=== PATIENT | female | born 1980 | race Caucasian/White ===

== ENCOUNTER 2024-04-24 09:23 | Emergency (ER) | payer BC, SELFPAY ==
[2024-04-24 09:25] VITALS: BP 120/81; PULSE 89; RESP 18; TEMP 36.4; O2SAT 100; BMI 25.7
--- NOTE | 2024-04-24 09:36 | ED.GENADULT ---
HPI - General Adult General Chief complaint: Flank Pain Stated complaint: Abdominal/back pain Time Seen by Provider: 04/24/24 09:36 History of Present Illness HPI narrative: Patient presents to the emergency department complaining of left abdominal/ flank pain. Patient states this started about an hour ago and is very intense. Pain has gotten so bad she became nauseous. No blood in the urine noted by patient. Patient denies fever at home. 44-year-old woman presenting to the emergency department concern of left flank area pain. Started about an hour prior to presentation. She thought maybe she does need to have a bowel movement or passed some gas. Notes underlying history of celiac disease but this is much different than usual. Hard to pinpoint exactly where the pain is coming from. 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 the try to palpate some location to pain but it seems fairly diffuse up and down the left side of the abdomen. Urinated unremarkably earlier this morning but this was prior to pain. She has vomited a couple of times. Relatively abrupt onset of pain. No difficulty breathing. Nausea she thinks is related to the pain. Related Data Home Medications ?Medication ?Instructions ?Recorded ?Confirmed levothyroxine 112 mcg tablet 112 mcg PO DAILY 04/24/24 04/28/24 oxycodone-acetaminophen 5 mg-325 1 tab PO Q4-6H PRN 04/28/24 04/28/24 mg tablet Previous Rx's ?Medication ?Instructions ?Recorded tamsulosin 0.4 mg capsule (Flomax) 0.4 mg PO DAILY #14 caps 04/24/24 oxycodone 5 mg tablet 5 - 10 mg (1 - 2 x 5 mg) PO Q4H 04/28/24 PRN pain #14 tabs Allergies Allergy/AdvReac Type Severity Reaction Status Date / Time No Known Drug Allergies Allergy Verified 04/28/24 02:02 Review of Systems Status of ROS: Reports: 6 or more systems reviewed and unremarkable except as noted in History and below [facility] Medical History Kidney stone ?N20.0 - Calculus of kidney (ICD-10) Social History Smoking Status: Never smoker Second hand tobacco smoke exposure: No How often do you have a drink containing alcohol: never How often do you have six or more drinks on one occasion: Never AUDIT-C Alcohol total score: 0 Non-prescribed substance use: denies use service: No Exam Narrative: Exam Narrative: Quietly clearly uncomfortable. Skin is warm and dry. Well-perfused peripherally. Heart in regular rate and rhythm. Abdomen is soft and maybe little uncomfortable to palpation generally in the left side but not with significantly reproducible pain or to palpation in the flank. Extremities without edema. Const: Vital Signs, click to edit/add: Vital Signs - 24 hr 04/24/24 09:25 Temperature 97.6 F Pulse Rate [Right Pulse Oximeter] 89 Respiratory Rate 18 Blood Pressure [Ri ght Upper Arm] 120/81 Pulse Oximetry 100 Oxygen Delivery Me thod Room Air Documenting provider has reviewed patient's vital signs: yes Course Vital Signs Vital signs: Initial Vital Signs Temperature 97.6 F 04/24/24 09:25 Temperature Source Temporal Artery Scan 04/24/24 09:25 Pulse Rate 89 04/24/24 09:25 Pulse Rhythm Regular 04/24/24 09:25 Pulse Strength 3+ Normal 04/24/24 09:25 Respiratory Rate 18 04/24/24 09:25 Blood Pressure 120/81 04/24/24 09:25 Blood Pressure Mean 94 04/24/24 09:25 Blood Pressure Position Sitting 04/24/24 09:25 Pulse Oximetry 100 04/24/24 09:25 Oxygen Delivery Method Room Air 04/24/24 09:25 Vital Signs Temperature 97.6 F 04/24/24 09:25 Pulse Rate 89 04/24/24 09:25 Respiratory Rate 18 04/24/24 09:25 Blood Pressure 120/81 04/24/24 09:25 Pulse Oximetry 100 04/24/24 09:25 Oxygen Delivery Method Room Air 04/24/24 09:25 Temperature 97.6 F 04/24/24 09:25 Pulse Rate 89 04/24/24 09:25 Respiratory Rate 18 04/24/24 09:25 Blood Pressure 120/81 04/24/24 09:25 Pulse Oximetry 100 04/24/24 09:25 Oxygen Delivery Method Room Air 04/24/24 09:25 Medications Administered Medications: Discontinued Medications Generic Name Dose Route Start Last Admin Trade Name Freq PRN Reason Stop Dose Admin Sodium Chloride 1,000 mls @ 1,000 mls/hr 04/24/24 09:41 04/24/24 09:40 0.9 % Sodium Chloride 1000 Ml IV 04/24/24 10:40 1,000 mls/hr .Q1H ONE Administration Ketorolac Tromethamine 30 mg 04/24/24 09:41 04/24/24 10:02 Ketorolac 30 Mg/Ml Inj IVP 04/24/24 09:42 30 mg ONCE ONE Administration Morphine Sulfate 4 mg 04/24/24 09:41 04/24/24 10:02 Morphine 4 Mg/Ml Inj IVP 04/24/24 09:42 4 mg ONCE ONE Administration Ondansetron HCl 4 mg 04/24/24 09:41 04/24/24 10:02 Ondansetron 2 Mg/Ml Inj IVP 04/24/24 09:42 4 mg ONCE ONE Administration Tamsulosin HCl 0.4 mg 04/24/24 10:02 04/24/24 11:16 Tamsulosin Hcl 0.4 Mg Capsule PO 04/24/24 10:03 0.4 mg ONCE ONE Administration Medical Decision Making MDM Narrative Medical decision making narrative: I would suspect ureteral stone and colic. Does not have a personal history of this. Unclear whether not her dad may have had kidney stones before. Would check for urinary tract infection of course as well but this seems to be atypical course. Could be vascular disruption I suppose. Does not appear to be radiating from the back/discogenic disease. No pain in adnexal area and out ovarian origin. IV normal saline and given ketorolac, morphine for more immediate effect, Zofran. Labs are reassuring. Normal creatinine. Improved with treatments as above. CT scan was requested without contrast has I strongly suspect ureteral stone. By my independent review I do see a moderately large left ureteral calculus looks to be between 4 and 5 mm at the proximal ureter looks to be at about the level of the psoas. There is some mild left hydronephrosis. Flomax yet ordered. Radiology over-read below INDICATION: Left-sided abdominal and back pain TECHNIQUE: Axial images were obtained from the diaphragm to the pubic symphysis. Reformats were obtained in the coronal and sagittal plane. IV Contrast: None Oral Contrast: None COMPARISON: None. FINDINGS: Lower chest: Unremarkable. Liver: Normal in contour with 11 millimeter cyst within the left lobe of the liver. Gallbladder and bile ducts: Unremarkable. No stones or inflammation. No biliary dilatation. Spleen: Unremarkable. Normal in size without mass. Pancreas: Unremarkable. No mass or inflammation. Adrenal glands: Unremarkable. No nodules. Kidneys: Nephrolithiasis with mild left hydronephrosis. Obstructing proximal left ureteral stone measuring 4 x 4 millimeters. Vasculature: Unremarkable. GI tract: The stomach is unremarkable. No dilated loops of large or small intestine. Unremarkable appendix. Pelvis: Unremarkable. Bones: Unremarkable for age. IMPRESSION: Nephrolithiasis with mild left hydronephrosis and obstructing proximal left ureteral stone measuring 4 x 4 millimeters. Discuss these findings with Vannessa. Unfortunately this stone has a little ways to travel yet. Still rather high Urinalysis was not obtained prior to departure. See patient discharge plan for further discussion Generally stay well hydrated with water. Consider straining your urine over this next week. Take Flomax until appears stone has passed. Follow-up in 5 days if stone likely still present/still having pain. Be seen sooner for uncontrolled pain, intractable vomiting, fever. Since you do not take ibuprofen, only prescribing Percocet from [facility] along with Zofran for nausea. Otherwise Flomax sent to your pharmacy. Lab Data Lab results reviewed: Yes I reviewed the patient's lab results Labs: Lab Results 04/24/24 Range/Units 10:07 WBC 7.59 (4.50-11.00) K/uL RBC 4.44 (4.00-5.20) m/uL Hgb 12.5 (12.0-16.0) gm/dL Hct 38.6 (33.0-51.0) % MCV 87 (80-100) fL MCH 28 (26-34) pg MCHC 32 (32-36) gm/dL RDW Coeff of Gayathri 13.6 (11.5-15.5) % Plt Count 260 (140-440) K/uL Neut % (Auto) 77.1 H (42.0-72.0) % Lymph % (Auto) 17.7 L (20-44) % [place] % (Auto) 4.1 (0.0-11.0) % Eos % (Auto) 0.5 (0.0-7.0) % Baso % (Auto) 0.5 (0.0-3.0) % Neut # (Auto) 5.90 (1.7-7.0) K/uL Lymph # (Auto) 1.30 (0.90-2.90) K/uL Renville # (Auto) 0.30 (0.00-0.90) K/UL Eos # (Auto) 0.04 (0.00-0.50) K/uL Baso # (Auto) 0.04 (0.00-0.30) K/uL Abs Immat Gran (auto) 0.01 (0.00-0.30) K/uL Imm/Tot Granulo (auto) 0.1 % Sodium 135 (135-149) mmol/L Potassium 3.7 (3.6-5.1) mmol/L Chloride 103 (96-114) mmol/L Carbon Dioxide 22 (20-32) mmol/L Anion Gap 10 (7-15) mEq/L BUN 16 (5-24) mg/dL Creatinine 0.7 (0.5-1.5) mg/dL Estimated Creat Clear 89.48 Estimated GFR 110 ml/min Glucose 109 (60-115) mg/dL Calcium 8.8 (8.4-10.6) mg/dL Discharge Plan Discharge Clinical Impression: Left ureteral calculus, Ureteral colic Patient Disposition: Home w/ Parent or Adult Condition: Improved Additional Instructions: Generally stay well hydrated with water. Consider straining your urine over this next week. Take Flomax until appears stone has passed. Follow-up in 5 days if stone likely still present/still having pain. Be seen sooner for uncontrolled pain, intractable vomiting, fever. Since you do not take ibuprofen, only prescribing Percocet from [facility] along with Zofran for nausea. Otherwise Flomax sent to your pharmacy. Prescriptions: New tamsulosin [Flomax] 0.4 mg capsule 0.4 mg PO DAILY Qty: 14 0RF No Action levothyroxine 112 mcg tablet 112 mcg PO DAILY oxycodone-acetaminophen 5-325 mg tablet 1 tab PO Q4-6H PRN oxycodone 5 mg tablet 5 - 10 mg PO Q4H PRN (Reason: pain) Qty: 14 0RF Follow Up/Referrals: Florencia Ibrahim DO [Primary Care Provider] - Stand Alone Forms: [employer] Info Instructions
[2024-04-24] MEDS: 0.9 % SODIUM CHLORIDE 1000 ml 1,000 ML IV (09:40)
--- NOTE | 2024-04-24 09:41 | CRLHL7_ITS ---
For Patients: As a result of the Century Cures Act, medical imaging exams and procedure reports are released immediately into your electronic medical record. You may view this report before your referring provider. If you have questions, please contact your health care provider. INDICATION: Left-sided abdominal and back pain TECHNIQUE: Axial images were obtained from the diaphragm to the pubic symphysis. Reformats were obtained in the coronal and sagittal plane. IV Contrast: None Oral Contrast: None COMPARISON: None. FINDINGS: Lower chest: Unremarkable. Liver: Normal in contour with 11 millimeter cyst within the left lobe of the liver. Gallbladder and bile ducts: Unremarkable. No stones or inflammation. No biliary dilatation. Spleen: Unremarkable. Normal in size without mass. Pancreas: Unremarkable. No mass or inflammation. Adrenal glands: Unremarkable. No nodules. Kidneys: Nephrolithiasis with mild left hydronephrosis. Obstructing proximal left ureteral stone measuring 4 x 4 millimeters. Vasculature: Unremarkable. GI tract: The stomach is unremarkable. No dilated loops of large or small intestine. Unremarkable appendix. Pelvis: Unremarkable. Bones: Unremarkable for age. IMPRESSION: Nephrolithiasis with mild left hydronephrosis and obstructing proximal left ureteral stone measuring 4 x 4 millimeters. Please note that all CT scans at this facility use dose modulation, iterative reconstruction, and/or weight-based dosing when appropriate to reduce radiation dose to as low as reasonably achievable. Dictated by Shaq Lee MD @ 04/24/2024 9:58:11 AM (Electronically Signed)
[2024-04-24] MEDS: MORPHINE 4 MG/ML INJ IVP (10:02)
[2024-04-24] MEDS: ONDANSETRON 2 MG/ML inj 4 MG IVP (10:02)
[2024-04-24] MEDS: KETOROLAC 30 MG/ML inj IVP (10:02)
[2024-04-24 10:22] LABS: Basophils Absolute Auto 0.04 K/uL (0.00-0.30); Basophils Percent Auto 0.5 % (0.0-3.0); Eosinophils Absolute Auto 0.04 K/uL (0.00-0.50); Eosinophils Percent Auto 0.5 % (0.0-7.0); Hematocrit 38.6 % (33.0-51.0); Hemoglobin* 12.5 gm/dL (12.0-16.0); Immature Granulocytes Abs Auto 0.01 K/uL (0.00-0.30); Immature Granulocytes Pct Auto 0.1 %; Lymphocytes Percent Auto 17.7 % (20-44); Mean Corpuscular HGB Conc 32 gm/dL (32-36); Mean Corpuscular Hemoglobin 28 pg (26-34); Mean Corpuscular Volume 87 fL (80-100); Monocytes Percent Auto 4.1 % (0.0-11.0); Neutrophils Percent Auto 77.1 % (42.0-72.0); Platelet Count* 260 K/uL (140-440); RDW Coefficient of Variation % 13.6 % (11.5-15.5); Red Blood Count 4.44 m/uL (4.00-5.20); White Blood Count* 7.59 K/uL (4.50-11.00)
[2024-04-24 10:29] LABS: Slide Review Reflex No
[2024-04-24 10:34] LABS: Chloride* 103 mmol/L (96-114); Potassium* 3.7 mmol/L (3.6-5.1); Sodium* 135 mmol/L (135-149)
[2024-04-24 10:37] LABS: Blood Urea Nitrogen* 16 mg/dL (5-24); Creatinine* 0.7 mg/dL (0.5-1.5); Est. Creatinine Clearance* 89.48; Estimated Glomerular Filt Rate 110 ml/min
[2024-04-24 10:38] LABS: Anion Gap 10 mEq/L (7-15); Calcium* 8.8 mg/dL (8.4-10.6); Carbon Dioxide* 22 mmol/L (20-32); Glucose* 109 mg/dL (60-115)
[2024-04-24] MEDS: TAMSULOSIN HCL 0.4 MG CAPSULE PO (11:16)
== END 2024-04-24 11:22 | disposition home or self-care (01) ==
PROVIDERS: Emergency Provider Family Medicine; PCP Family Medicine
DX: N20.1 Calculus of ureter (principal)
CPT/HCPCS: 36415; 74176; 80048; 81001; 85025; 96374; 96375; 99284; A9270; J1885; J2270; J2405; J7030

== ENCOUNTER 2024-04-28 01:54 | Emergency (ER) | payer BC, SELFPAY ==
--- OUTSIDE RECORDS SUMMARY | 2024-04-28 01:56 | XMS_ITS | Continuity of Care Document ---
Author Organization [facility] Address [address] [address] [place] [address] Phone Care Team Providers Care Advertising Sales Manager Name Role Phone Jonas Tirado MD Unavailable [...] by oral route 2 times every week 08118 UNITS - Active Procedures Procedure Date New Level 4 Advance Directives Directive Yes / No Effective Date File Name No Information Encounters Encounter Description Practice Location Reason(s) For Visit Diagnoses Date Provider Providers Copied on Encounter [facility], [address] [address], [place], [place], [id number], [place] tel:[phone] [facility] No Information Abelino Mcdaniel. [address] [facility], [facility] [address], [place], [place], [id number] , [place]. tel:[phone] New Level 4 [facility] [place], [address] [address], [place], [place], [id number], [place] tel:[phone] [facility] GI Symptoms or Concerns (chief complaint) Collagenous colitisCeliac disease Abelino Mcdaniel. [address] [facility], [facility] [address], [place], [place], [address] , [place]. [phone] Referring Provider: Florencia Ibrahim MD, [address] [place] [address], [address]. tel:[phone] [facility], [address] [address], [place], [place], [id number], [place] tel:[phone] [facility] No Information Abelino Mcdaniel. [address] [facility], [facility] [address], [place], [place], [id number] , [place]. [phone] Family History Family Member Type Diagnosis Age [...] Registry Payers Payer name Insurance type Covered democrat ID Authoriza tion(s) No Information Social History Type Description Quantity Date Captured Comments Sex Female Smoking Status No Information Chief Complaint And Reason For Visit No Information Reason For Referral Reason For Referral No Information Plan Of Treatment Date Type Action Status Referral Ordered: Thyroid Jewell Profile Appointment date/timeframe: First Available ordered Referral [...]
--- OUTSIDE RECORDS SUMMARY | 2024-04-28 01:56 | XMS_ITS | Clinical Summary ---
Author Organization [facility] Address [place], [place] [address] Care Team Providers Care [employer] Le[employer] Sales Representative Name Role Phone GurpreetFlorencia mohamud Mary Unavailable Florencia Ibrahim DO Primary Care Provider [phone] Allergies No known active allergies Medications cholecalciferol (Vitamin D-3) 2,000 unit capsule Take 1 Capsule (2,000 units) by mouth once daily. 0 1 Active levothyroxine (SYNTHROID) 112 mcg tabletIndications:O ther specified hypothyroidism Take 1 Tablet (112 mcg) by mouth before breakfast. 90 Tablet 1 03/13/2024 3:20 PM AUTOMATION ANALYST 4 Active Hospital, Clinic, or Other Facility Administered Medication Ordered Dose Route Frequency Start Date End Date Status cyanocobalamin (VITAMIN B12) 1,000 mcg/mL injection 1,000 mcgIndications:Collag enous colitis,Low vitamin B12 level,Fatigue, unspecified type 1000 mcg IM Q 4 WEEKS (28 days) 01/31/2022 Active Active Problems Problem Noted Date Diagnosed Date Pap smear for cervical cancer screening 07/02/19 24 Overview (08/10/2023): 07/2009 ASCUS/HPV+ 08/2009 [place]: Biopsy and ECC Negative 05/2010 NIL 05/2011 NIL 07/2014 NIL/HPV negative 12/2018 NIL/HPV negative 07/2023 NIL/HPV negative. Plan: Pap/HPV due 07/2028. Collagenous colitis 12/08/2020 Overview (12/08/2020): Colonoscopy 12/2020 collagenous colitis, repeat at age 51 Celiac disease 03/22/2020 Overview (03/22/2020): Colonoscopy 03/2020 Hwang 3c, gluten free diet for life Retroverted uterus in second trimester 7 Overview (04/10/2017): It's a Boy!! Estimated Date of Delivery: 05/05/17 Patient's last menstrual period was 07/26/2016 (exact date). Last Tdap- 02/21/2017 Last Flu vaccine- 12/27/2016 No Known Allergies Obstetric History T2 L2 SAB0 TAB0 Ectopic0 Multiple0 Live Births2 # Outcome Date GA Lbr Placido/2nd Weight Sex Delivery Anes PTL Lv 3 Current 2 Term 3.175 kg (7 lb) F Vag MARY 1 Term M Vag MARY Component Latest Ref Rng & Units 10/13/2016 10/13/2016 10/13/2016 12:11 PM 12:11 PM 12:11 PM SODIUM 135 - 145 mmol/L POTASSIUM 3.5 - 5.0 mmol/L CHLORIDE 98 - 110 mmol/L CO2,TOTAL 21 - 31 mmol/L ANION GAP 5 - 18 GLUCOSE 65 - 100 mg/dL CALCIUM 8.5 - 10.5 mg/dL BUN 8 - 25 mg/dL CREATININE 0.57 - 1.11 mg/dL BUN/CREAT RATIO 10 - 20 GFR if >60 ml/min/1.73m2 GFR if not >60 ml/min/1.73m2 ALBUMIN 3.5 - 5.2 g/dL PROTEIN,TOTAL 6.0 - 8.0 g/dL GLOBULIN 2.0 - 3.7 g/dL A/G RATIO 1.0 - 2.0 BILIRUBIN,TOTAL 0.2 - 1.2 mg/dL ALK PHOSPHATASE 50 - 136 IU/L ALT (SGPT) 8 - 45 IU/L AST (SGOT) 2 - 40 IU/L ANTIBODY SCREEN Negative Negative SPECIMEN EXPIRATION DATE/TIME 10/16/16 23:59 HEMOGLOBIN 12.0 - 16.0 g/dL 12.2 MCV 80 - 100 fL 87 RUBELLA IGG ANTIBODY Positive 3.21 CHLAMYDIA PROBE N GONORRHOEAE PROBE HEMOGLOBIN A1C SCREENING <6.4 % 4.8 ABORH A Rh Positive HBSAG Nonreactive Nonreactive HEPATITIS C ANTIBODY Non-Reactive Non-Reactive HIV-1/HIV-2 ANTIBODY Non-Reactive Non-Reactive TREPONEMA PALLIDUM Negative Negative TSH 0.35 - 4.94 uIU/mL 2.29 GENZYME QUAD SCREEN D-DIMER,QUANTITATIVE <0.50 FEU mcg/mL FEU mcg/mL GLUCOSE,GESTATIONAL 65 - 139 mg/dL Component Latest Ref Rng & Units 10/13/2016 11/17/2016 01/08/2017 12:14 PM SODIUM 135 - 145 mmol/L 137 POTASSIUM 3.5 - 5.0 mmol/L 3.8 CHLORIDE 98 - 110 mmol/L 103 CO2,TOTAL 21 - 31 mmol/L 25 ANION GAP 5 - 18 9 GLUCOSE 65 - 100 mg/dL 94 CALCIUM 8.5 - 10.5 mg/dL 8.8 BUN 8 - 25 mg/dL 11 CREATININE 0.57 - 1.11 mg/dL 0.60 BUN/CREAT RATIO 10 - 20 18 GFR if >60 ml/min/1.73m2 >60 GFR if not >60 ml/min/1.73m2 >60 ALBUMIN 3.5 - 5.2 g/dL 3.6 PROTEIN,TOTAL 6.0 - 8.0 g/dL 6.6 GLOBULIN 2.0 - 3.7 g/dL 3.0 A/G RATIO 1.0 - 2.0 1.2 BILIRUBIN,TOTAL 0.2 - 1.2 mg/dL 0.2 ALK PHOSPHATASE 50 - 136 IU/L 60 ALT (SGPT) 8 - 45 IU/L 12 AST (SGOT) 2 - 40 IU/L 11 ANTIBODY SCREEN Negative SPECIMEN EXPIRATION DATE/TIME HEMOGLOBIN 12.0 - 16.0 g/dL 11.7 (L) MCV 80 - 100 fL 89 RUBELLA IGG ANTIBODY CHLAMYDIA PROBE Negative N GONORRHOEAE PROBE Negative HEMOGLOBIN A1C SCREENING <6.4 % ABORH HBSAG Nonreactive HEPATITIS C ANTIBODY Non-Reactive HIV-1/HIV-2 ANTIBODY Non-Reactive TREPONEMA PALLIDUM Negative TSH 0.35 - 4.94 uIU/mL GENZYME QUAD SCREEN See Separate Report D-DIMER,QUANTITATIVE <0.50 FEU mcg/mL FEU mcg/mL 0.59 (H) GLUCOSE,GESTATIONAL 65 - 139 mg/dL Component Latest Ref Rng & Units 01/23/2017 SODIUM 135 - 145 mmol/L POTASSIUM 3.5 - 5.0 mmol/L CHLORIDE 98 - 110 mmol/L CO2,TOTAL 21 - 31 mmol/L ANION GAP 5 - 18 GLUCOSE 65 - 100 mg/dL CALCIUM 8.5 - 10.5 mg/dL BUN 8 - 25 mg/dL CREATININE 0.57 - 1.11 mg/dL BUN/CREAT RATIO 10 - 20 GFR if >60 ml/min/1.73m2 GFR if not >60 ml/min/1.73m2 ALBUMIN 3.5 - 5.2 g/dL PROTEIN,TOTAL 6.0 - 8.0 g/dL GLOBULIN 2.0 - 3.7 g/dL A/G RATIO 1.0 - 2.0 BILIRUBIN,TOTAL 0.2 - 1.2 mg/dL ALK PHOSPHATASE 50 - 136 IU/L ALT (SGPT) 8 - 45 IU/L AST (SGOT) 2 - 40 IU/L ANTIBODY SCREEN Negative SPECIMEN EXPIRATION DATE/TIME HEMOGLOBIN 12.0 - 16.0 g/dL MCV 80 - 100 fL RUBELLA IGG ANTIBODY CHLAMYDIA PROBE N GONORRHOEAE PROBE HEMOGLOBIN A1C SCREENING <6.4 % ABORH HBSAG Nonreactive HEPATITIS C ANTIBODY Non-Reactive HIV-1/HIV-2 ANTIBODY Non-Reactive TREPONEMA PALLIDUM Negative TSH 0.35 - 4.94 uIU/mL GENZYME QUAD SCREEN D-DIMER,QUANTITATIVE <0.50 FEU mcg/mL FEU mcg/mL GLUCOSE,GESTATIONAL 65 - 139 mg/dL 91 Component Latest Ref Rng & Units 04/06/2017 Culture No Group B Streptococcus isolated. Past Medical History: Diagnosis Date Anxiety state, unspecified 01/31/2012 Hypothyroidism 2009 Past Surgical History: Procedure Laterality Date NO PREVIOUS SURGERY No data on file. 3rd Problems (from 10/04/16 to present) No problems associated with this episode. JAVED Vela.....01/23/2017 4:08 PM Anxiety state, unspecified 01/31/2012 Vitamin D deficiency 08/04/2010 Unspecified hypothyroidism 09/24/2009 Resolved Problems Problem Noted Date Diagnosed Date Resolved Date Supervision of other normal 05/06/2010 08/11/2011 Encounters Date Type Department Care Team Description 04/28/2024 Travel 04/24/2024 Orders Only [facility] Scanner 1 scan: (1-Ord) MARY JANE, CT ABDOMEN PELVIS WO CON, 04/24/2024 from Last 3 Months Immunizations Name Administration Dates Next Due COVID-19 vaccine ([employer] 30mcg/0.3mL) PFHENRY 05/26/2020,04/15/2020 Influenza A (H1N1), Live Intranasal 02/18/2009 Influenza, IIV3 (Age >=3 years) 12/17/2008 Influenza, IIV4 12/31/2020, 0,12/24/2018, 018,12/27/2016,12/30/2015,12/31/2014 Tdap 02/21/2017,04/02/2008 Family History Medical History Relation Name Comments Cancer Brother leukemia COPD Father Diabetes Father Hyperlipidemia Father Hypertension Father Rheum arthritis Father Other Maternal Aunt hemorrhagic an eurysmal stroke Diabetes Maternal Grandfather Stroke Maternal Grandfather Alcoholism Mother Aneurysm Mother brain Hyperlipidemia Mother Hypertension Mother Other Mother Stroke Other hemorrhagic ane urysmal bleed Cancer-breast No Family History Cancer-ovarian No Family History Relation Name Status Comments Brother Father Maternal Aunt Maternal Grandfather Mother Other Social History Tobacco Use Types Packs/Day Years Used Date Smoking Tobacco: Former Cigarettes Q uit: 02/28/2009 Smokeless Tobacco: Never Tobacco Cessation:Counseling Given: Yes Comments:January 2009 Alcohol Use Standard Drinks/Week Comments Yes 1 (1 standard drink = 0.6 oz pur e alcohol) 1 drink 5x week [facility] Utilities Answer Date Recorded Do you have trouble paying f or utilities (for example, heat, electricity, water, phone)? Yes 04/12/2023 PHQ-2 Answer Date Recorded PHQ-2 TOTAL SCORE 1 07/27/2023 Social Connections Answer Date Recorded Do you often feel lonely or isolated from those around you? 0 04/12/2023 Financial Resource Strain Answer Date R ecorded Difficulty of Paying Living Expenses 3 04/12/2023 Difficulty of Paying Living Expenses Not on file 04/12/2023 Food Insecurity Answer Date Recorded Do you worry your food will run out before you are able to buy more? 1 04/12/2023 Transportation Needs Answer Date Record ed Does lack of transportation keep you from medica l appointments? 1 04/12/2023 Does lack of transportation keep you from work, meetings or getting things that you need? 1 04/12/2023 Housing Stability Answer Date Recorded What is your housing situation today? 1 04/12/2023 Comments No Sex and Gender Information Value Date Recorded Sex Assigned at Not on file Legal Sex Female 7:39 AM AUTOMATION ANALYST Gender Identity Not on file Sexual Orientation Not on file Occupation Industry Job Start Date Job End Date Not on file Not on file Not on file Not on file Obstetrics History Para Term AB IAB SAB Ectopic Multiple Livin g Live Births 3 3 3 0 0 0 0 0 0 3 3 Date Outcome GA Total Labor Labor/2nd/3rd Weight Sex Type Anes PTL Mary A1 A5 Name Clin Term M Vag Living Term 3.17 kg (7 lb) F Vag Living 2017 Term 40w 2d Vag Living Last Filed Vital Signs Vital Sign Reading Time Taken Comments Blood Pressure 119/78 07/27/2023 11:00 AM CDT Pulse 77 07/27/2023 11:00 AM CDT Temperature 36.9 C (98.5 F) 02/18/2021 1:06 PM AUTOMATION ANALYST Respiratory Rate - - Oxygen Saturation 100% 07/27/2023 11:00 AM CDT Inhaled Oxygen Concentration - - Weight 68 kg (150 lb) 07/27/2023 11:00 AM CDT Height 162.2 cm (5' 3.86) 07/27/2023 11:00 AM C DT Body Mass Index 25.86 07/27/2023 11:00 AM CDT Plan of Treatment Upcoming Encounters Date Type Department Care Team (Late st Contact Info) Description 04/28/2024 4:20 PM AUTOMATION ANALYST Office Visit [facility] [address] [place] [address] Florencia Ibrahim, [address] [place] [address] Health Maintenance Due Date Last Done Comments COVID-19 vaccine series ( season) 2023 01/30/2023, 12/31/2020, 05/26/2020, Additional history exists Influenza for age 9-49 12/02/2023 1, 12/18/2019, 12/24/2018, Additional history exists BMI (ht and wt on same day) for age 18+ 07/26/2024 07/27/2023, 02/18/2021, 03/03/2020, Additional history exists Depression screening for age 12+ 07/26/2024 07/27/2023, 01/30/2022, 01/27/2022, Additional history exists Tetanus booster 02/21/2027 02/21/2017, 0212/2010, 04/02/2008 Pap test for age 21-65 07/26/2028 4, 07/27/2023, 01/03/2019, Additional history exists HIV for age 15-65 Completed 10/13/2016, 05/05/2010 Hepatitis C screening for age 18-79 Completed 10/13/2016 Tdap Completed 02/21/2017, 04/02/2008 Pneumococcal series for age 6-49 Aged Out No longer eligible based on patient's age to complete this topic Procedures Procedure Name Priority Date/Time Associated Diagnosis Comments SCAN-CT INTERPRETATION 12:00 AM AUTOMATION ANALYST HPV HIGH RISK Routine 07/27/2023 12:25 PM CDT Pap smear for cervical cancer screening ANTI HIV 1/2 Routine 10/13/2016 12:11 PM CDT 9 weeks gestation of ANTI HCV Routine 10/13/2016 12:11 PM CDT 9 weeks gestation of from Last 3 Months or Most Recently Relevant to Health Maintenance Results * SCAN-CT INTERPRETATION (04/24/2024 12:00 AM AUTOMATION ANALYST) Anatomical Region Laterality Modality Other us Scanner OTHER Final Result * HPV HIGH RISK (07/27/2023 12:25 PM CDT) TYPE 16 Negative Negative 08/01/2023 2:43 PM CDT [facility] TYPE 18 Negative Negative 08/01/2023 2:43 PM CDT [facility] [facility] OTHER HIGH RISK TYPES Negative Negative 08/01/2023 2:43 PM CDT [facility] Other (Cervical) Non-Blood / Unknown 07/27/2023 12:25 PM CDT 07/30/2023 2:06 PM CDT Narrative [facility] - 08/01/2023 2:43 PM CDT HPV types 16, 18, 31, 33, 35, 39, 45, 51, 52, 56, 58, 59, 66 and 68 DNA were undetectable or below the pre-set threshold. Methodology: Trang Neto 4800 HPV Test Florencia Ibrahim DO MICROBIOLOGY Final Resul t [facility] [address] [place] [address], [place] * ANTI HCV (10/13/2016 12:11 PM CDT) HEPATITIS C ANTIBODY Non-Reacti ve Non-Reacti ve 10/13/2016 8:05 PM CDT [facility] Blood BLOOD SPECIMEN / Unknown Venipuncture / Unknown 10/13/2016 12:11 PM CDT 10/13/2016 12:12 PM CDT Narrative [facility] - 10/13/2016 8:05 PM CDT Antibodies to HCV not detected; does not exclude the possibility of exposure to HCV. Marija VALDEZ SEND OUTS Final R esult [facility] [address] [place] [address], [place] * ANTI HIV 1/2 (10/13/2016 12:11 PM CDT) HIV-1/HIV-2 ANTIBODY Non-Reacti ve Non-Reacti ve 10/13/2016 8:06 PM CDT [facility] Blood BLOOD SPECIMEN / Unknown Venipuncture / Unknown 10/13/2016 12:11 PM CDT 10/13/2016 12:12 PM CDT Narrative [facility] - 10/13/2016 8:06 PM CDT HIV-1 p24 and HIV-1/HIV-2 Ab not detected us Marija VALDEZ SEND OUTS Final R esult [facility] [address] [place] [address], [place] from Last 3 Months or Most Recently Relevant to Health Maintenance Insurance [employer] [employer] Care Teams Automotive Leasing Sales Representative Relationship Specialty Start Date End Date Florencia Ibrahim DO [address] [place] [address] PCP - General Family Practice 11/30/15 Florencia Ibrahim DO Family Practice 05/17/10
[2024-04-28 01:59] VITALS: BP 143/63; PULSE 90; RESP 18; TEMP 36.9; O2SAT 99; BMI 25.7
[2024-04-28] MEDS: ONDANSETRON ODT 4 MG TAB PO (02:13)
[2024-04-28] MEDS: MORPHINE 4 MG/ML INJ IM (02:14)
[2024-04-28 02:16] VITALS: TEMP 36.9
[2024-04-28] MEDS: KETOROLAC 30 MG/ML inj IM (02:16)
--- OUTSIDE RECORDS SUMMARY | 2024-04-28 02:16 | XMS_ITS | Continuity of Care Document ---
Author Organization [facility] Address [address] [address] [place] [address] Phone Care Team Providers Care Mid Teacher Name Role Phone Jonas Tirado MD Unavailable [...] by oral route 2 times every week [id number] UNITS - Active Procedures Procedure Date New Level 4 Advance Directives Directive Yes / No Effective Date File Name No Information Encounters Encounter Description Practice Location Reason(s) For Visit Diagnoses Date Provider Providers Copied on Encounter [facility], [address] [address], [place], [place], [id number], [place] tel:[phone] [facility] No Information Abelino Mcdaniel. [address] [facility], [facility] [address], [place], [place], [id number] , [place]. tel:[phone] New Level 4 [facility] [place], [address] [address], [place], [place], [id number], [place] tel:[phone] [facility] GI Symptoms or Concerns (chief complaint) Collagenous colitisCeliac disease Abelino Mcdaniel. [address] [facility], [facility] [address], [place], [place], [id number] , [place]. [phone] Referring Provider: Florencia Ibrahim MD, [address] [place] [address], [address]. tel:[phone] [facility], [address] [address], [place], [place], [id number], [place] tel:[phone] [facility] No Information Abelino Mcdaniel. [address] [facility], [facility] [address], [place], [place], [id number] , [place]. [phone] Family History Family Member Type Diagnosis Age [...] Registry Payers Payer name Insurance type Covered libertarian ID Authoriza tion(s) No Information Social History Type Description Quantity Date Captured Comments Sex Female Smoking Status No Information Chief Complaint And Reason For Visit No Information Reason For Referral Reason For Referral No Information Plan Of Treatment Date Type Action Status Referral Ordered: Thyroid [place] Profile Appointment date/timeframe: First Available ordered Referral [...]
[2024-04-28 02:48] VITALS: BP 132/74; PULSE 85; RESP 18; TEMP 36.9; O2SAT 99
[2024-04-28 02:49] VITALS: BP 132/74; PULSE 85; RESP 18; TEMP 36.9
--- NOTE | 2024-04-28 02:49 | ED_ITS ---
HPI - General Adult General Chief complaint: Flank Pain Stated complaint: kidney stone Time Seen by Provider: 04/28/24 02:02 Source: patient Mode of arrival: ambulatory Limitations: no limitations History of Present Illness HPI narrative: 44-year-old female presents to the ED with severe pain at the left lower quadrant area. Has a known kidney stone, diagnosed 3 and half days ago. No fever, no new trauma or injury. Stone is 4 mm. She has pushing fluids, taking her Flomax. She had previously resisted taking NSAIDs as they tend to irritate her irritable bowel and colitis and cause significant diarrhea. She has been taking Tylenol and the prescribed Percocet. She actually had no pain for 6 hours today and then the pain came on very suddenly this evening and she has been unable to get it under control despite the Tylenol and Percocet. No vomiting. No dysuria, no bloody stools, no other sign of complication. ED notes and CT are reviewed. Previous labs reviewed as well. Past medical history benign. No known drug allergies. Only home medication on a chronic basis is levothyroxine. New prescriptions for Percocet and Flomax noted. ROS is notable for the left lower quadrant abdominal pain, had previously been left flank area, otherwise denies times 12 systems. Related Data Home Medications ?Medication ?Instructions ?Recorded ?Confirmed levothyroxine 112 mcg tablet 112 mcg PO DAILY 04/24/24 04/28/24 oxycodone-acetaminophen 5 mg-325 1 tab PO Q4-6H PRN 04/28/24 04/28/24 mg tablet Previous Rx's ?Medication ?Instructions ?Recorded tamsulosin 0.4 mg capsule (Flomax) 0.4 mg PO DAILY #14 caps 04/24/24 oxycodone 5 mg tablet 5 - 10 mg (1 - 2 x 5 mg) PO Q4H 04/28/24 PRN pain #14 tabs Allergies Allergy/AdvReac Type Severity Reaction Status Date / Time No Known Drug Allergies Allergy Verified 04/28/24 02:02 [facility] Medical History Kidney stone ?N20.0 - Calculus of kidney (ICD-10) Social History Smoking Status: Never smoker Second hand tobacco smoke exposure: No How often do you have a drink containing alcohol: never How often do you have six or more drinks on one occasion: Never AUDIT-C Alcohol total score: 0 Non-prescribed substance use: denies use service: No Exam Const: Vital Signs, click to edit/add: Vital Signs - 24 hr 04/28/24 01:59 04/28/24 02:00 04/28/24 02:16 Temperature 98.5 F 98.5 F Pulse Rate [Right Pulse Oximeter] 90 Respiratory Rate 18 Blood Pressure [Ri ght Upper Arm] 143/63 H Pulse Oximetry 99 99 Oxygen Delivery Me thod Room Air 04/28/24 02:48 Temperature 98.5 F Pulse Rate [Right Pulse Oximeter] 85 Respiratory Rate 18 Blood Pressure [Ri ght Upper Arm] 132/74 Pulse Oximetry 99 Oxygen Delivery Me thod Room Air Documenting provider has reviewed patient's vital signs: yes Other: Moderate distress from pain but answers questions appropriately, follows commands, redirectable. 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 HENMT: Common normals: normocephalic, moist oral mucous membranes and oropharynx normal Head and scalp: normocephalic Face and sinus: normal facial exam Eye: Common normals: conjunctivae normal General eye: normal appearance of both eyes Conjunctiva: conjunctiva(e) normal Resp: Common normals: normal respiratory effort, no use of accessory muscles and clear to auscultation bilaterally Effort & inspection: able to speak in complete sentences Auscultation: clear to auscultation bilaterally Cardio: Common normals: regular rate, regular rhythm, S1 normal heart sound, S2 normal heart sound and no murmurs Rate: regular rate Rhythm: regular rhythm Heart sounds: S1 normal and S2 normal GI: Common normals: Normal to inspection, nondistended, normoactive bowel sounds present, soft to palpation, no hepatosplenomegaly and no masses Palpation: soft and no hepatosplenomegaly Other: Mild tenderness left lower quadrant. No rebound tenderness or guarding. : Other: Mild left-sided CVA tenderness, lower pole Extremity: Common normals: normal to inspection and normal capillary refill Neuro: Speech: speech normal Motor exam: no movement abnormalities noted Psych: Appearance: grossly normal Attitude: engaged Insight: insight good Judgement: judgment good Skin: Common normals: no rashes or lesions noted General skin exam: no rashes or lesions noted Course Course ED Course: 44-year-old female with intractable pain from left kidney stone, known to be 4 mm without sign of complication. No fever, hypotension, tachycardia or other signs of atypical clinical course. Counseled on the risks and benefits of NSAIDs. Would strongly recommend these and she accepts offer. Is given 4 mg of IM morphine, 30 mg of IM Toradol and 4 mg of oral Zofran. Reassessed after 20 minutes and patient feeling much better. We discussed the risks and benefits of additional workup. The labs are reviewed, she does not have any history of baseline organ dysfunction. I reassured her that it really just does seem like the stone is moving down and is most likely in the UVJ area as that is a very common place for there to be a rapid change in symptoms. It is important that she continues to push fluids aggressively and take her Flomax. We discussed continuing on the Tylenol 1000 mg every 6 hours I also strongly recommended that she reconsider use of NSAIDs as I think they would be very valuable to her. Prescription given through [facility] I have also given a small refill of the oxycodone in case she needs it to her pharmacy as she has about 8 tablets left. I would like her moving around more frequently in continuing to push fluids. Alarm symptoms like fever, severe weakness, persistent intractable pain with the NSAIDs would be worrisome and I would want her to be re-evaluated. She is in agreement that with this information and how much better she is doing after the Toradol that repeat imaging is not likely going to be helpful and I completely agree. She is comfortable with discharge and the plan discussed as above. Vital Signs Vital signs: Initial Vital Signs Temperature 98.5 F 04/28/24 01:59 Temperature Source Temporal Artery Scan 04/28/24 01:59 Pulse Rate 90 04/28/24 01:59 Respiratory Rate 18 04/28/24 01:59 Blood Pressure 143/63 H 04/28/24 01:59 Blood Pressure Mean 89 04/28/24 01:59 Blood Pressure Position Sitting 04/28/24 01:59 Pulse Oximetry 99 04/28/24 01:59 Oxygen Delivery Method Room Air 04/28/24 01:59 Vital Signs Temperature 98.5 F 04/28/24 01:59 Pulse Rate 90 04/28/24 01:59 Respiratory Rate 18 04/28/24 01:59 Blood Pressure 143/63 H 04/28/24 01:59 Pulse Oximetry 99 04/28/24 01:59 Oxygen Delivery Method Room Air 04/28/24 01:59 Temperature 98.5 F 04/28/24 02:48 Pulse Rate 85 04/28/24 02:48 Respiratory Rate 18 04/28/24 02:48 Blood Pressure 132/74 04/28/24 02:48 Pulse Oximetry 99 04/28/24 02:48 Oxygen Delivery Method Room Air 04/28/24 02:48 Medications Administered Medications: Generic Name Dose Route Start Last Admin Trade Name Freq PRN Reason Stop Dose Admin Ketorolac Tromethamine 30 mg 04/28/24 02:08 04/28/24 02:16 Ketorolac 30 Mg/Ml Inj IM 04/28/24 02:09 30 mg ONCE ONE Administration Morphine Sulfate 4 mg 04/28/24 02:08 04/28/24 02:14 Morphine 4 Mg/Ml Inj IM 04/28/24 02:09 4 mg ONCE ONE Administration Ondansetron HCl 4 mg 04/28/24 02:08 04/28/24 02:13 Ondansetron Odt 4 Mg Tab PO 04/28/24 02:09 4 mg ONCE ONE Administration Discharge Plan Discharge Clinical Impression: Left ureteral calculus Patient Disposition: Home w/ Parent or Adult Condition: Improved Instructions: Ureteral Stones (ED) Additional Instructions: As we discussed, it seems like the stone is starting to move which overall is a good sign. I am thankful that the Toradol was so helpful for you. I understand the risks and benefits of you continuing to take that and I do trust her judgment about further doses and the risk of diarrhea. It is okay to use Imodium to counteract the NSAIDs if needed. Remember that I want you to continue taking Tylenol 1000 mg every 6 hours scheduled to help reduce pain. Unfortunately, the stones may not hurt for several hours or even a few days if they are not moving. It is to your advantage to drink lots of fluids and move frequently to help flush the stone. Use the Toradol 1 tablet about every 6 hours as needed. I would automatically take a dose at least twice a day. Your next dose should be taken at 8:00 a.m.. I have given you refill of the oxycodone with instructions to the pharmacist to hold on to it if you need more. It can take several weeks for the stone to pass. You should come back to the emergency room review have high fever, severe weakness which could be a sign of sepsis, persistent vomiting or dehydration. Activity Level: Activity as Tolerated Discharge Diet: Regular Prescriptions: New oxycodone 5 mg tablet 5 - 10 mg PO Q4H PRN (Reason: pain) Qty: 14 0RF No Action levothyroxine 112 mcg tablet 112 mcg PO DAILY tamsulosin [Flomax] 0.4 mg capsule 0.4 mg PO DAILY Qty: 14 0RF oxycodone-acetaminophen 5-325 mg tablet 1 tab PO Q4-6H PRN Follow Up/Referrals: Florencia Ibrahim DO [Primary Care Provider] - Stand Alone Forms: [facility] Info Instructions
== END 2024-04-28 02:49 | disposition home or self-care (01) ==
PROVIDERS: Emergency Provider Family Medicine; PCP Family Medicine
DX: N20.1 Calculus of ureter (principal)
CPT/HCPCS: 94761; 96372; 99283; A9270; J1885; J2270

== ENCOUNTER 2024-09-16 09:07 | Emergency (ER) | payer BC, SELFPAY ==
--- OUTSIDE RECORDS SUMMARY | 2022-08-17 11:34 | XMS_ITS | Continuity of Care Document ---
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 Do not break, crush, dissolve and/or chew. 9 MG - Active cyanocobalamin (vitamin B-12) 1,000 mcg capsule take by oral route every day - Active levothyroxine 112 mcg capsule take 1 capsule by oral route every day 112 MCG - Active Vitamin D2 1,250 mcg (50,000 unit) capsule take 1 capsule by oral route 2 times every week 81527 UNITS - Active Procedures Procedure Date New Level 4 Advance Directives Directive Yes / No Effective Date File Name No Information Encounters Encounter Description Practice Location Reason(s) For Visit Diagnoses Date Provider Providers Copied on Encounter [facility], [address] [address], [place], [place], [address], [place] tel:[phone] [facility] No Information Abelino Mcdaniel. [address] [facility], [facility] [address], [place], [place], [address] , [place]. tel:[phone] New Level 4 [facility], [address] [address], [place], [place], [address], [place] tel:[phone] [facility] GI Symptoms or Concerns (chief complaint) Collagenous colitisCeliac disease Abelino Mcdaniel. [address] [facility], [facility] [address], [place], [place], [address] , [place]. [phone] Referring Provider: Florencia Ibrahim MD, [address] [place] [address], [address]. tel:[phone] [facility], [address] [address], [place], [place], [id number], [place] tel:[phone] [facility] No Information Abelino Mcdaniel. [address] [facility], [facility] [address], [place], [place], [address] , [place]. [phone] Family History Family Member Type Diagnosis Age At Onset Mother Problem (finding) Alcoholism Father Problem (finding) Colon polyps Father Problem (finding) Diverticular disease Immunizations Vaccine Date Status Comments Afluria Qd administered Note: [facility] bi-directional interface ; Source: Other Registry SARS-COV-2 (COVID-19) vaccin e, mRNA, spike protein, LNP, bivalent booster, preservative free, 30 mcg/0.3 mL dose, kenyetta-sucrose formulation administered Note: [facility] bi-d irectional interface ; Source: Other Registry Afluria Qd administered Note: [facility] bi-directional interface ; Source: Other Registry SARS-COV-2 (COVID-19) vaccin e, mRNA, spike protein, LNP, preservative free, 30 mcg/0.3mL dose administered Note: [facility] bi-direct ional interface ; Source: Other Registry SARS-COV-2 (COVID-19) vaccin e, mRNA, spike protein, LNP, preservative free, 30 mcg/0.3mL dose administered Note: [facility] bi-direct ional interface ; Source: Other Registry SARS-COV-2 (COVID-19) vaccin e, mRNA, spike protein, LNP, preservative free, 30 mcg/0.3mL dose administered Note: [facility] bi-direct ional interface ; Source: Other Registry Keyonnauria Qd administered Note: [facility] bi-directional interface ; Source: Other Registry Afluria Qd administered Note: [facility] bi-directional interface ; Source: Other Registry Afluria Qd administered Note: [facility] bi-directional interface ; Source: Other Registry Afluria Qd administered Note: [facility] bi-directional interface ; Source: Other Registry tetanus toxoid, reduced diphtheria toxoid, and acellular pertussis vaccine, adsorbed administered Note: [facility] b i-directional interface ; Source: Other Registry Keyonnauria Qd administered Note: [facility] bi-directional interface ; Source: Other Registry Keyonnauria Qd administered Note: [facility] bi-directional interface ; Source: Other Registry Keyonnauria Qd administered Note: [facility] bi-directional interface ; Source: Other Registry influenza virus vaccine, unspecified formulation administered Note: [facility] bi-di rectional interface ; Source: Other Registry Payers Payer name Insurance type Covered constitution party ID Authoriza tion(s) No Information Social History Type Description Quantity Date Captured Comments Sex Female Smoking Status No Information Chief Complaint And Reason For Visit No Information Reason For Referral Reason For Referral No Information Plan Of Treatment Date Type Action Status Referral Ordered: Thyroid Ida Profile Appointment date/timeframe: First Available ordered Referral Ordered: Celiac: DGP IgA/G + TTG +IgA Appointment date/timeframe: First Available ordered History Of Present Illness Encounter Date Complaint History Of Prese nt Illness GI Symptoms or Concerns Klaudia ramirez is a pleasant 42-year-old female, new patient, who I am seeing in consultation for Dr. Florencia Ibrahim given ongoing symptoms of collagenous colitis. Enriqueta has history of hypothyroidism and is on Synthroid. She reports TSH was last checked several months ago and was normal. She underwent EGD 03/19/2020 for evaluation of chronic diarrhea and a positive tTG antibody. EGD was performed by Dr. Jese Carnes. Duodenum was noted to have scalloped mucosa and histopathology showed may level 3 C. she notes her celiac disease labs normalize within 3 months of a gluten free diet. She had ongoing diarrhea however and a colonoscopy by Dr. Carnes on 12/03/2020 was notable for collagenous colitis. When she is on budesonide 9 milligrams daily her symptoms are well controlled and she typically will have 1 loose stool. When she is off of budesonide she will have recurrent diarrhea and nocturnal defecation. In addition off of budesonide she will have urgency to defecate. She notes compliance with a gluten free diet though has not had any labs checked in regards to this in the last 1 year. She just completed another prescription of budesonide 9 milligrams daily. She notes, previously, if she takes a dose or 2 of Imodium she will have good control of her symptoms as well. Past medical history Celiac disease Collagenous colitis Hypothyroidism B12 deficiency Vitamin-D deficiency Social history Minimal alcohol No tobacco Family history no IBD. No celiac disease next Functional Status Date Functional Assessmen t No Information Instructions Date Instruction Additional Infor mation No Information Assessments Type Assessment Date No Information Patient Care Teams Name Effective Dates (start - stop) Status Members No Information
[2024-09-16] VITALS (14 sets, daily range): BP systolic 100–132; BP diastolic 71–87; PULSE 74–108; RESP 9–30; TEMP 36.4; O2SAT 97–99; BMI 25.4
--- OUTSIDE RECORDS SUMMARY | 2024-09-16 09:10 | XMS_ITS | Clinical Summary ---
Author Organization [facility] Address [address] [place] [address] Care Team Providers Care Curtain Worker Name Role Phone GurpreetoneidaFlorencia DO Unavailable [phone] Florencia Ibrahim DO Primary Care Provider Allergies No known active allergies Medications cholecalciferol (Vitamin D-3) 2,000 unit capsule Take 1 Capsule (2,000 units) by mouth once daily. 0 1 Active levothyroxine (SYNTHROID) 112 mcg tabletIndications:O ther specified hypothyroidism Take 1 Tablet (112 mcg) by mouth before breakfast. 90 Tablet 06/13/2024 10:18 AM CDT 5 Active calcium carbonate-vitamin D3 (600 mg-400 unit) (Calcium 600 + D) 600 mg-10 mcg (400 unit) tablet 2 Active loperamide 2 mg capsule 3 Active Active Problems Problem Noted Date Diagnosed Date Pap smear for cervical cancer screening 07/02/19 24 Overview (08/10/2023): 07/2009 ASCUS/HPV+ 08/2009 [place]: Biopsy and ECC Negative 05/2010 NIL 05/2011 [...] present) No problems associated with this episode. Jeanna Will RNC.....01/23/2017 4:08 PM Anxiety state, unspecified 01/31/2012 Vitamin D deficiency 08/04/2010 Unspecified hypothyroidism 09/24/2009 Resolved Problems Problem Noted Date Diagnosed Date Resolved Date Supervision of other normal 05/06/2010 08/11/2011 Encounters Date Type Department Care Team Description 08/01/2024 1:00 PM CDT Office Visit [facility] [address] [facility] [address] Florencia Ibrahim, Physical (44 yr/); Pelvis Pain/problem 08/01/2024 11:20 AM CDT Ancillary Procedure [facility] [address] [facility] [address] 08/01/2024 Travel 07/27/2024 Travel from Last 3 Months Immunizations Immunization Administration Dates Next Due COVID-19 vaccine (Movetis NTBabyList 30mcg/0.3mL) PF, MDV 05/26/2020,04/15/2020 Influenza A (H1N1), Live Intranasal 02/18/2009 Influenza, IIV3 (Age >=3 years) 12/17/2008 Influenza, IIV4 12/31/2020, 0,12/24/2018,2017,12/27/2016,12/30/2015,12/31/2014 Tdap 02/21/2017,04/02/2008 Family History Medical History Relation Name Comments Cancer Brother leukemia COPD Father Les Diabetes Father Les Hyperlipidemia Father Les Hypertension Father Les Rheum arthritis Father Les Diabetes Maternal Grandfather Jamel Stroke Maternal Grandfather Jamel Alcoholism Mother [place] Aneurysm Mother [place] brain Hyperlipidemia Mother [place] Hypertension Mother [place] Stroke Other hemorrhagic ane urysmal bleed Thyroid Disease Paternal Grandfather Jony Osteoporosis Paternal Grandmother Inés Cancer-breast No Family History Cancer-ovarian No Family History Relation Name Status Comments Brother Father Les Maternal Aunt Maternal Grandfather Jamel Mother [place] Other Paternal Grandfather Jony Alive Paternal Grandmother Inés Alive Social History Tobacco Use Types Packs/Day Years Used Date Smoking Tobacco: Former Cigarettes 0.5 13.9 0 04/02/1995 - 02/28/2009 Smokeless Tobacco: Never Tobacco Cessation:Counseling Given: Not Answered Comments:January 2009 Alcohol Use Standard Drinks/Week Comments Yes 5 (1 standard drink = 0.6 oz pur e alcohol) 1 drink 5x week PHQ-2 Answer Date Recorded PHQ-2 TOTAL SCORE 2 08/01/2024 Social Connections Answer Date Recorded Do you often feel lonely or isolated from those around you? 0 04/28/2024 Financial Resource Strain Answer Date R ecorded Difficulty of Paying Living Expenses 3 04/28/2024 Difficulty of Paying Living Expenses Not on file 04/28/2024 Food Insecurity Answer Date Recorded Do you worry your food will run out before you are able to buy more? 1 04/28/2024 Transportation Needs Answer Date Record ed Does lack of transportation keep you from medica l appointments? 1 04/28/2024 Does lack of transportation keep you from work, meetings or getting things that you need? 1 04/28/2024 Housing Stability Answer Date Recorded What is your housing situation today? 1 04/28/2024 Utilities Answer Date Recorded Do you have trouble paying f or utilities (for example, heat, electricity, water, phone)? 1 04/28/2024 Comments No Sex and Gender Information Value Date Recorded Sex Assigned at Not on file Legal Sex Female 7:39 AM FELT C[employer] Gender Identity Not on file Sexual Orientation [...] Sign Reading Time Taken Comments Blood Pressure 110/72 08/01/2024 1:01 PM CDT Pulse 74 08/01/2024 1:01 PM CDT Temperature 36.6 C (97.8 F) 08/01/2024 1:01 PM CDT Respiratory Rate - - Oxygen Saturation 100% 08/01/2024 1:01 PM CDT Inhaled Oxygen Concentration - - Weight 67.6 kg (149 lb) 08/01/2024 1:01 PM CDT Height 162 cm (5' 3.78) 08/01/2024 1:01 PM CDT Body Mass Index 25.75 08/01/2024 1:01 PM CDT Plan of Treatment Health Maintenance Due Date Last Done Comments Hepatitis B series for 19+ (1 of 3 - 19+ 3-dose series) 02/05/2000 Influenza Vaccine (Season Ended) 2024 12/31/2020, 12/18/2019, 12/24/2018, Additional history exists BMI (ht and wt on same day) for age 18+ 08/01/2025 08/01/2024, 07/27/2023, 02/18/2021, Additional history exists Depression screening for age 12+ 08/01/2025 08/01/2024 Tetanus booster 02/21/2027 02/21/2017, 0212/2010, 04/02/2008 Pap test for age 21-65 07/26/2028 , 07/27/2023, 01/03/2019, Additional history exists HIV for age 15-65 Completed 10/13/2016, 05/05/2010 Hepatitis C screening for age 18-79 Completed 10/13/2016 Tdap Completed 02/21/2017, 04/02/2008 COVID-19 vaccine series Completed 02/14/20 24, 01/30/2023, 12/31/2020, Additional history exists Pneumococcal series for age 6-49 Aged Out No longer eligible based on patient's age to complete this topic Procedures Procedure Name Priority Date/Time Associated Diagnosis Comments TSH Routine 08/01/2024 2:04 PM CDT Other specified hypothyroidism Acquired hypothyroidism BASIC METABOLIC PANEL Routine 08/01/2024 2:04 PM CDT Diabetes mellitus screening LIPID PANEL W REFLEX MEASURED LDL Routine 08/01/2024 2:04 PM CDT Lipid screening VITAMIN D 25 (DEFICIENCY) Routine 08/01/2024 2:04 PM CDT Vitamin D deficiency XR MAMMO RAJINDER BILAT SCREEN Routine 08/01/2024 11:29 AM CDT Visit for screening mammogram HPV HIGH RISK Routine 07/27/2023 12:25 PM CDT Pap smear for cervical cancer screening ANTI HIV 1/2 Routine 10/13/2016 12:11 PM CDT 9 weeks gestation of (HC) ANTI HCV Routine 10/13/2016 12:11 PM CDT 9 weeks gestation of (HC) from Last 3 Months or Most Recently Relevant to Health Maintenance Results * LIPID PANEL W REFLEX MEASURED LDL (08/01/2024 2:04 PM CDT) CHOLESTEROL, TOTAL 183 <200 mg/dL [facility] HDL CHOLESTEROL 86 > OR = 50 mg/dL [facility] TRIGLYCERIDES 93 <150 mg/dL [facility] LDL-CHOLESTEROL 79 mg/dL (calc) [facility] Comment: Reference range: <100 Desirable range <100 mg/dL for primary prevention; <70 mg/dL for patients with CHD or diabetic patients with > or = 2 CHD risk factors. LDL-C is now calculated using the Chasidy calculation, which is a validated novel method providing better accuracy than the Friedewald equation in the estimation of LDL-C. eJse CARY et al. HERB. 2013;310(19): 4319-7273 (http://education.Instacover/faq/URT974) CHOL/HDLC RATIO 2.1 <5.0 (calc) [facility] NON HDL CHOLESTEROL 97 <130 mg/dL (calc) [facility] Comment: For patients with diabetes plus 1 major ASCVD risk factor, treating to a non-HDL-C goal of <100 mg/dL (LDL-C of <70 mg/dL) is considered a therapeutic option. Blood BLOOD SPECIMEN / Unknown 08/01/2024 2:04 PM CDT 08/01/2024 2:04 PM CDT us Florencia Vázquezt DO CHEMISTRY Final Resul t [facility] [address] [place] [address], [facility] [address] [place] [address] * (ABNORMAL) VITAMIN D 25 (DEFICIENCY) (08/01/2024 2:04 PM CDT) Pathologist [facility] VITAMIN D,25-OH,TOTAL,IA 26(L) 30 - 100 ng/mL [facility] Comment: Vitamin D Status 25-OH Vitamin D: Deficiency: <20 ng/mL Insufficiency: 20 - 29 ng/mL Optimal: > or = 30 ng/mL For 25-OH Vitamin D testing on patients on D2-supplementation and patients for whom quantitation of D2 and D3 fractions is required, the Quest[facility]ure[facility](TM) 25-OH VIT D, (D2,D3), LC/MS/MS is recommended: order code 74025 (patients >2yrs). See Note 1 Note 1 For additional information, please refer to http://education.Instacover/faq/HNI588 (This link is being provided for informational/ educational purposes only.) Blood BLOOD SPECIMEN / Unknown 08/01/2024 2:04 PM CDT 08/01/2024 2:04 PM CDT Florencia Ibrahim DO SEND OUTS Final Resul t Performing Organization Address City/[facility]/ZIP Co de Phone Number [facility] [employer] [address] [address], [facility] [address] * TSH (08/01/2024 2:04 PM CDT) TSH 1.17 mIU/L [facility] Comment: Reference Range > or = 20 Years 0.40-4.50 Ranges First trimester 0.26-2.66 Second trimester 0.55-2.73 Third trimester 0.43-2.91 Blood BLOOD SPECIMEN / Unknown 08/01/2024 2:04 PM CDT 08/01/2024 2:04 PM CDT Florencia Ibrahim DO CHEMISTRY Final Resul t Performing Organization Address City/[facility]/ZIP Co de Phone Number [employer] [facility] [address] [place] [phone], [place] [phone] [facility] [address] [place] [address] * (ABNORMAL) BASIC METABOLIC PANEL (08/01/2024 2:04 PM CDT) GLUCOSE 92 65 - 99 mg/dL [facility] Comment: Fasting reference interval UREA NITROGEN (BUN) 18 7 - 25 mg/dL [facility] CREATININE 0.72 0.50 - 0.99 mg/dL [facility] EGFR 106 > OR = 60 mL/min/1. 73m2 [facility] BUN/CREATININE RATIO SEE NOTE: 6 - 22 (calc) [facility] Comment: Not Reported: BUN and Creatinine are within reference range. SODIUM 139 135 - 146 mmol/L [facility] POTASSIUM 4.4 3.5 - 5.3 mmol/L [facility] CHLORIDE 103 98 - 110 mmol/L [facility] CARBON DIOXIDE 31 20 - 32 mmol/L [facility] ELECTROLYTE BALANCE 5(L) 7 - 17 mmol/L (calc) [facility] CALCIUM 9.5 8.6 - 10.2 mg/dL [facility] Blood BLOOD SPECIMEN / Unknown 08/01/2024 2:04 PM CDT 08/01/2024 2:04 PM CDT Florencia Vázquezt DO CHEMISTRY Final Resul t [employer] [facility] [address] [place] [address], [place] [phone] [facility] [address] [place] [address] * XR MAMMO RAJINDER BILAT SCREEN (08/01/2024 11:29 AM CDT) Anatomical Region Laterality Modality BREASTS, Breast Left, Breast Right Bilateral Mammography Impressions 08/03/2024 7:41 AM CDT There is no radiographic evidence for malignancy. Recommend annual mammograms. MAMMOGRAM ASSESSMENT: ACR 1 Negative PATIENTS: You will also receive a letter with your examination results in an easy to read format. If you have questions about your results, please contact your referring provider. Narrative 08/03/2024 7:41 AM CDT For Patients: As a result of the Cures Act, medical imaging exams and procedure reports are released immediately into your electronic medical record. You may view this report before your referring provider. If you have questions, please contact your health care provider. XR MAMMO RAJINDER BILAT SCREEN [[id number]] CLINICAL HISTORY: This is an asymptomatic 44 y.o. patient. INDICATION FOR EXAM: Mammogram Screening. TECHNIQUE: CC and MLO views were obtained. This study was evaluated with the assistance of Computer-Aided Detection. Breast Tomosynthesis was used in interpretation. COMPARISON FILM: Yes 07/27/23 [facility] 05/18/22 [facility] FINDINGS: The breasts are heterogeneously dense, which may obscure small masses. There are no dominant masses, suspicious micro calcifications or areas of architectural distortion. [facility] Detert DO MAMMO Final Resul t * HPV HIGH RISK (07/27/2023 12:25 PM CDT) TYPE 16 Negative Negative 08/01/2023 2:43 PM CDT [facility] TYPE 18 Negative Negative 08/01/2023 2:43 PM CDT [facility] OTHER HIGH RISK TYPES Negative Negative 08/01/2023 2:43 PM CDT [facility] Other (Cervical) Non-Blood / Unknown 07/27/2023 12:25 PM CDT 07/30/2023 2:06 PM CDT Narrative [facility] - 08/01/2023 2:43 PM CDT HPV types 16, 18, 31, 33, 35, 39, 45, 51, 52, 56, 58, 59, 66 and 68 DNA were undetectable or below the pre-set threshold. Methodology: Oxyn[employer] 4800 HPV Test Florencia Mary Detert DO MICROBIOLOGY Final Resul t [facility] [address] [place] [address], * ANTI HCV (10/13/2016 12:11 PM CDT) HEPATITIS C ANTIBODY Non-Reacti ve Non-Reacti ve 10/13/2016 8:05 PM CDT [facility] Blood BLOOD SPECIMEN / Unknown Venipuncture / Unknown 10/13/2016 12:11 PM CDT 10/13/2016 12:12 PM CDT Narrative [facility] - 10/13/2016 8:05 PM CDT Antibodies to HCV not detected; does not exclude the possibility of exposure to HCV. Marija VALDEZ SEND OUTS Final R esult Performing Organization Address [facility]/ZIP Co de Phone Number [facility] [address] [place] [address], * ANTI HIV 1/2 (10/13/2016 12:11 PM CDT) HIV-1/HIV-2 ANTIBODY Non-Reacti ve Non-Reacti ve 10/13/2016 8:06 PM CDT [facility] Blood BLOOD SPECIMEN / Unknown Venipuncture / Unknown 10/13/2016 12:11 PM CDT 10/13/2016 12:12 PM CDT Narrative [facility] - 10/13/2016 8:06 PM CDT HIV-1 p24 and HIV-1/HIV-2 Ab not detected Marija VALDEZ SEND OUTS Final R esult [facility] [address] from Last 3 Months or Most Recently Relevant to Health Maintenance Insurance [employer] [address] Care Teams Curtain Worker Relationship Specialty Start Date End Date Florencia Ibrahim DO [address] [place] [phone] PCP - General Family Practice 11/30/15 Florencia Ibrahim DO Family Practice 05/17/10
--- OUTSIDE RECORDS SUMMARY | 2024-09-16 09:11 | XMS_ITS | Data Portability ---
Author Organization [place] - [facility], autoContract - [employer] [facility] [employer] [facility] Address [address] [place] [address] Assessment Encounter Date Assessment Date Assessment LastModified by Organization Details LastModified Time 07/04/2024 07/04/2024 ASSESSMENT: Patient is a good candidate for conservative care and the prognosis is for a favorable outcome that achieves the patients' goals. We discussed etiology, activity modifications, home care, and other treatment options. Initially, it is recommended that the patient receive in-office treatment 1 times per week for 8 weeks at which time a re-evaluation will be performed to determine an appropriate change in plan. Initially, treatment will focus on joint manipulation to restore range of motion and reduce pain. We will slowly progress to therapeutic exercises and activities to improve function, strength, and stability may also be used as warranted. If the patient is not responding as expected, more invasive procedures will be discussed along with a referral. All considerations above were discussed with the patient and questions answered to satisfaction. If the patient should have any additional questions, or should the condition evolve or worsen, the patient should not hesitate to contact our office. ASSESSMENT: Patient is a good candidate for conservative care and the prognosis is for a favorable outcome that achieves the patients' goals. We discussed etiology, activity modifications, home care, and other treatment options. Initially, it is recommended that the patient receive in-office treatment 1 times per week for 8 weeks at which time a re-evaluation will be performed to determine an appropriate change in plan. Initially, treatment will focus on joint manipulation to restore range of motion and reduce pain. We will slowly progress to therapeutic exercises and activities to improve function, strength, and stability may also be used as warranted. If the patient is not responding as expected, more invasive procedures will be discussed along with a referral. All considerations above were discussed with the patient and questions answered to satisfaction. If the patient should have any additional questions, or should the condition evolve or worsen, the patient should not hesitate to contact our office. ecram Not available 07/04/2024 12:41:56 Plan of Treatment Reminders Order Date Submit Date Provider Last Modified By Organization Details Last Modified Time Details Appointments None record ed. Lab None record ed. Referral None record ed. Procedures None record ed. Surgeries None record ed. Imaging None record ed. Medication Orders None record ed. Patient TargetsNo targets recorded. Patient InstructionsNo instructions recorded. Reason for Referral None Reported. Problems Name Problem SNOMED Code Status Onset Date Resolution Date Notes Provider Name and Address Organization Details Recorded Time Cervical segmental dysfunction 899688051 Active 2024 Allen Peña DC [address], [place], [address], [facility] 12:41:27 Thoracic segmental dysfunction 082980953 Active 2024 Allen Peña DC [address], [place], [address], [facility] 12:41:27 Neck pain 14849056 Active 2024 Allen Peña DC [address], [place], [address], [facility] 12:41:28 Lumbar segmental dysfunction 184090825 Active 2024 Allen Peña DC [address], [place], [address], [facility] 12:41:28 Somatic dysfunction of sacral spine 526186299 Active 2024 Allen Peña DC [address], [place], [address], [facility] 12:41:57 Low back pain 816450059 Active 2024 Allen Peña DC [address], [place], [address], [facility] 12:41:57 Problem Notes None recorded. Procedures Surgical History Date Name Laterality Status Provider Name and Address Organization Details Recorded Time [address]: Spinal manipulation , 3 to 4 regions completed Allen Peña DC [address], [place], [address], [facility] 07/04/2024 12:42:47 Imaging Results None recorded. Procedure Notes None recorded. Medical Equipment None Reported. Vitals None Recorded Social History None recorded. Functional Status None recorded. Mental Status None recorded. Family History Nothing Reported. Medical History No medical history recorded. Gynecological HistoryNo gynecological history recorded. Obstetrics History GPAL:G 0 P 0 0 0 0 Past Encounters Encounter ID Performer Location Encounter Start Date Encounter Closed Date Diagnosis/Indication Diagnosis SNOMED-CT Code Diagnosis ICD10 Code Diagnosis Note [id number] AICHA Florence [facility] [address] [place] [address] 07/04/2024 11:19:11 07/04/2024 12:45:40 Cervical segmental dysfunction 319161261 M99.01 Neck pain 60956168 M54.2 Thoracic s egmental dysfunction 273790536 M99.02 Lumbar seg mental dysfunction 467517516 M99.03 Low back pain 824252094 M54.50 Somatic dy sfunction of sacral spine 966998462 M99.04 Health Concerns Section Related Observation LastModified by Organization Detai ls LastModified Time None Recorded Concern Status LastModified by Organization Details LastModified Time None Recorded Advance Directives Directive None Recorded Payers Insurance Date Sequence Insurance Name Policy Number Policy Duarte Covered Member ID Duarte Member ID Guarantor Name 07/04/2024 1 *SELF PAY* [facility] Notes Date Note Type Note Provider Name and Address Organization Details Recorded Time 07/04/2024 text/html HPI - Cervical SpineReported bypatient.Location: bilateral Quality:aching Severity:moderate Duration:2 weeks Timing:gradual Alleviating Factors:rest Aggravating Factors:bending; twisting/turning Associated Symptoms:no numbness/tinglingHP I - Lumbar SpineReported bypatient.Location: right; With radiation to knee Quality:aching Severity:moderate Timing:recurrent Context:cannot identify Aggravating Factors:twisting; bending/squatting Alleviating Factors:rest Allen Peña DC [address], [place], [address], [place] [facility] 07/04/2024 12:43:08 OBGyn Episode No OBEpisode recorded.
--- NOTE | 2024-09-16 09:45 | CRLHL7_ITS ---
For Patients: As a result of the Cures Act, medical imaging exams and procedure reports are released immediately into your electronic medical record. You may view this report before your referring provider. If you have questions, please contact your health care provider. INDICATION: Chest pain COMPARISON: None TECHNIQUE: PA and lateral views of the chest were acquired FINDINGS: TUBES AND LINES: None. HEART AND MEDIASTINUM: The heart size is normal. The mediastinal contour appears normal for patient age. LUNGS AND PLEURAL SPACES: The lungs appear normal.The pleural spaces are unremarkable. OSSEOUS STRUCTURES: Age-appropriate appearance. No acute focal finding. IMPRESSION: No evidence of active pulmonary disease. Dictated by Jonas Amaral MD @ 09/16/2024 10:24:48 AM (Electronically Signed)
[2024-09-16] MEDS: ASPIRIN 81 MG TAB.CHEW 324 MG PO (10:11)
[2024-09-16 10:14] LABS: Basophils Absolute Auto 0.03 K/uL (0.00-0.30); Basophils Percent Auto 0.4 % (0.0-3.0); Eosinophils Absolute Auto 0.02 K/uL (0.00-0.50); Eosinophils Percent Auto 0.3 % (0.0-7.0); Hemoglobin* 11.5 gm/dL (12.0-16.0); Lymphocytes Percent Auto 8.1 % (20-44); Mean Corpuscular HGB Conc 32 gm/dL (32-36); Mean Corpuscular Hemoglobin 29 pg (26-34); Mean Corpuscular Volume 89 fL (80-100); Monocytes Percent Auto 7.4 % (0.0-11.0); Neutrophils Percent Auto 83.8 % (42.0-72.0); Platelet Count* 273 K/uL (140-440); RDW Coefficient of Variation % 13.1 % (11.5-15.5); Red Blood Count 4.03 m/uL (4.00-5.20); White Blood Count* 7.13 K/uL (4.50-11.00)
[2024-09-16 10:16] LABS: Slide Review Reflex No
--- NOTE | 2024-09-16 10:23 | ED.CHESTPAIN ---
HPI - Chest Pain General Date Seen: 09/16/24 Chief Complaint: Chest Pain Stated Complaint: Chest pain Time Seen by Provider: 09/16/24 09:36 Source: patient and family Mode of arrival: ambulatory Limitations: no limitations History of Present Illness HPI narrative: Patient is a 44-year-old female who presents here with a 1-2 week history of chest discomfort, no left sides it has been waxing and waning anion, but never totally gone away. Worse with movement, twisting turning or taking a deep breath in. Does not really give a history of shortness of breath, but was brought her in today to the emergency room was the fact that the pain seems to gone more up into her neck region. She describes a more on the left than the right. But there is some component of this. No feeling of acid in the back of her throat. No nausea vomiting, no significant diaphoresis. She does remind me that she does have a history of musculoskeletal problems. But does not remember doing any new exercise program. She took some Toradol she had left over from kidney stones last night this did not work and took some ibuprofen at 4:00 a.m. and this seemed to have actually help the discomfort. 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 No family history of any premature coronary artery disease, no history of any aneurysmal disease in the family, other than her mother who had an aneurysm in her brain. She does not have any history of kidney disease, this did not come on after she was exercising. No history of leg swelling, recent trips, coughing, hemoptysis, or passing out. She has never really had this before. But has had multiple issues with pains Past medical history of collagenous colitis, hypothyroidism. Related Data Home Medications ?Medication ?Instructions ?Recorded ?Confirmed levothyroxine 112 mcg tablet 112 mcg PO DAILY 04/24/24 09/16/24 oxycodone-acetaminophen 5 mg-325 1 tab PO Q4-6H PRN 04/28/24 04/28/24 mg tablet Previous Rx's ?Medication ?Instructions ?Recorded tamsulosin 0.4 mg capsule (Flomax) 0.4 mg PO DAILY #14 caps 04/24/24 oxycodone 5 mg tablet 5 - 10 mg (1 - 2 x 5 mg) PO Q4H 04/28/24 PRN pain #14 tabs methylprednisolone 4 mg tablets in See Rx Instructions PO .COMPLEX 09/16/24 a dose pack (Medrol (Low)) #21 ea Allergies Allergy/AdvReac Type Severity Reaction Status Date / Time No Known Drug Allergies Allergy Verified 04/28/24 02:02 Review of Systems Status of ROS Reports: 10 or more systems reviewed and unremarkable except as noted in History and below [facility] Medical History Kidney stone ?N20.0 - Calculus of kidney (ICD-10) Social History Smoking Status: Never smoker Second hand tobacco smoke exposure: No How often do you have a drink containing alcohol: never How often do you have six or more drinks on one occasion: Never AUDIT-C Alcohol total score: 0 Non-prescribed substance use: denies use service: No Exam Narrative Exam Narrative: Ice here in room 6 she is in no apparent distress, speaking to me normally pupils equal round reactive to light, alert oriented nontoxic TMs are normal oropharynx normal there is no adenopathy anterior posterior chains, thyroid normal midline not enlarged, her BMI is normal. Chest is good air entry bilaterally no wheezing crackles noted heart sounds are normal, she does the however definitely he has hurts her little bit to take a big breath in she is able to do it and does not have any significant splinting, I do not hear any rubs in her lungs or her heart, and there is no change with sitting forward verses laying back. Her abdomen is soft there is no guarding no organomegaly bowel sounds are normal, negative Wahl sign she moves all extremities independently and well. Skin reveals no petechiae rashes negative Homans sign. Const Vital Signs, click to edit/add: Vital Signs - 24 hr 09/16/24 09:15 09/16/24 09:51 09/16/24 10:00 Temperature 97.5 F L Pulse Rate 83 84 Pulse Rate [Pulse Oximeter] 108 H Respiratory Rate 20 12 16 Blood Pressure Blood Pressure [Right Upper Arm] 132/87 Pulse Oximetry 98 99 99 Oxygen Delivery Method Room Air 09/16/24 10:02 09/16/24 10:18 09/16/24 10:30 Temperature Pulse Rate 97 80 Pulse Rate [Pulse Oximeter] Respiratory Rate 11 L 18 14 Blood Pressure 111/76 Blood Pressure [Right Upper Arm] Pulse Oximetry 97 99 Oxygen Delivery Method 09/16/24 10:31 09/16/24 10:45 09/16/24 11:00 Temperature Pulse Rate 80 81 99 Pulse Rate [Pulse Oximeter] Respiratory Rate 12 14 30 H Blood Pressure 100/76 Blood Pressure [Right Upper Arm] Pulse Oximetry 99 99 98 Oxygen Delivery Method 09/16/24 11:01 Temperature Pulse Rate 81 Pulse Rate [Pulse Oximeter] Respiratory Rate 15 Blood Pressure 103/74 Blood Pressure [Right Upper Arm] Pulse Oximetry 99 Oxygen Delivery Method Documenting provider has reviewed patient's vital signs: yes Course Reevaluation(s) Time of Reevaluation #1: 11:43 Reevaluation #1: I discussed with the patient, all your laboratory work was normal, her pain is about the same, the aspirin really unchanged this. From what I see, I suspect this is musculoskeletal component or GE reflux esophagitis component. I think it would be reasonable to try either Medrol or prednisone. This could make a esophagitis/reflux worse, but also could help if this is more of a arthritic type component. If this is also pleurisy, versus pericarditis, this will also does help this. I went over the risks benefits and side effects of this, she was comfortable with this, we will discharge her home a with the thought of falling a primary care, worsening signs and symptoms which we discussed also she will come back. Vital Signs Vital signs: Initial Vital Signs Temperature 97.5 F L 09/16/24 09:15 Temperature Source Temporal Artery Scan 09/16/24 09:15 Pulse Rate 108 H 09/16/24 09:15 Respiratory Rate 20 09/16/24 09:15 Blood Pressure 132/87 09/16/24 09:15 Blood Pressure Mean 102 09/16/24 09:15 Pulse Oximetry 98 09/16/24 09:15 Oxygen Delivery Method Room Air 09/16/24 09:15 Vital Signs Temperature 97.5 F L 09/16/24 09:15 Pulse Rate 108 H 09/16/24 09:15 Respiratory Rate 20 09/16/24 09:15 Blood Pressure 132/87 09/16/24 09:15 Pulse Oximetry 98 09/16/24 09:15 Oxygen Delivery Method Room Air 09/16/24 09:15 Temperature 97.5 F L 09/16/24 09:15 Pulse Rate 81 09/16/24 11:01 Respiratory Rate 15 09/16/24 11:01 Blood Pressure 103/74 09/16/24 11:01 Pulse Oximetry 99 09/16/24 11:01 Oxygen Delivery Method Room Air 09/16/24 09:15 Medications Administered Medications: Discontinued Medications Generic Name Dose Route Start Last Admin Trade Name Waldemar PRN Reason Stop Dose Admin Aspirin 324 mg 09/16/24 09:45 09/16/24 10:11 Aspirin 81 Mg Tab.Chew PO 09/16/24 09:46 324 mg ONCE ONE Administration MDM - Chest Pain MDM Narrative Medical decision making narrative: During the evaluation of this patient I considered multiple differential diagnosis is. The life-threatening differential diagnosis include coronary disease/MO, pulmonary embolism, pneumothorax, pneumonia, and aortic dissection. Other differential diagnosis included but were not limited to pericarditis, myocarditis, chest wall pain, GERD, esophageal rupture, rib fracture contusion, pleurisy, as well as other etiologies. Differential Diagnosis Differential diagnosis: Likely fracture of rib, pneumothorax, stable angina, unstable angina pectoris, atypical chest pain, st elevation myocardial infarction, costochondritis, chest pain and biliary colic Medical Records Data Attestation: I reviewed the patient's medical records. Lab Data Attestation: I reviewed the patient's lab results. Labs: Lab Results 09/16/24 09/16/24 Range/Units 09:46 10:00 WBC 7.13 (4.50-11.00) K/uL RBC 4.03 (4.00-5.20) m/uL Hgb 11.5 L (12.0-16.0) gm/dL Hct 36.0 (33.0-51.0) % MCV 89 (80-100) fL MCH 29 (26-34) pg MCHC 32 (32-36) gm/dL RDW Coeff of Gayathri 13.1 (11.5-15.5) % Plt Count 273 (140-440) K/uL Neut % (Auto) 83.8 H (42.0-72.0) % Lymph % (Auto) 8.1 L (20-44) % [place] % (Auto) 7.4 (0.0-11.0) % Eos % (Auto) 0.3 (0.0-7.0) % Baso % (Auto) 0.4 (0.0-3.0) % Neut # (Auto) 6.00 (1.7-7.0) K/uL Lymph # (Auto) 0.60 L (0.90-2.90) K/uL [place] # (Auto) 0.50 (0.00-0.90) K/UL Eos # (Auto) 0.02 (0.00-0.50) K/uL Baso # (Auto) 0.03 (0.00-0.30) K/uL Abs Immat Gran (auto) 0.00 (0.00-0.30) K/uL Imm/Tot Granulo (auto) 0.0 % INR 0.99 (0.91-1.10) APTT 26 (23-33) Seconds D-Dimer Quant (PE/DVT) < 0.27 (0.00-0.50) ug/ml Sodium 135 (135-149) mmol/L Potassium 4.6 (3.6-5.1) mmol/L Chloride 105 (96-114) mmol/L Carbon Dioxide 25 (20-32) mmol/L Anion Gap 5 L (7-15) mEq/L BUN 18 (5-24) mg/dL Creatinine 0.6 (0.5-1.5) mg/dL Estimated Creat Clear 104.40 Estimated GFR 114 ml/min Glucose 98 (60-115) mg/dL Calcium 8.9 (8.4-10.6) mg/dL C-Reactive Protein 3.0 H (0.5-1.0) mg/dL NT-Pro-B Natriuret Pep 291 (See Note) pg/mL POC Troponin I 0.00 L (0.01-0.04) ng/ml Imaging Data Chest x-ray: Attestation: I have reviewed the pertinent imaging results. My impression: Negative Radiologist's impression: [facility] [address] [place] [address] Diagnostic Imaging Report Patient: Vannessa Gonzalez MR#: [id number] : 1980 Acct:[id number] Loc: ED Service Date: 09/16/[address]: Ordering Physician: Agusto Ya M.D. Date of Service: 09/16/24 Procedure(s): XR chest 2V Accession Number(s): [id number] cc: Florencia Ibrahim D.O.; Agusto Ya M.D.~ For Patients: As a result of the Cures Act, medical imaging exams and procedure reports are released immediately into your electronic medical record. You may view this report before your referring provider. If you have questions, please contact your health care provider. INDICATION: Chest pain COMPARISON: None TECHNIQUE: PA and lateral views of the chest were acquired FINDINGS: TUBES AND LINES: None. HEART AND MEDIASTINUM: The heart size is normal. The mediastinal contour appears normal for patient age. LUNGS AND PLEURAL SPACES: The lungs appear normal.The pleural spaces are unremarkable. OSSEOUS STRUCTURES: Age-appropriate appearance. No acute focal finding. IMPRESSION: No evidence of active pulmonary disease. Dictated by Jonas Amaral MD @ 09/16/2024 10:24:48 AM (Electronically Signed) ECG Data Attestation: I personally reviewed and interpreted this ECG as follows: ECG interpretation date: 09/16/24 Prior ECG tracings: not available for review Interpretation: EKG shows normal sinus rhythm, ventricular rate 91, no ST wave acute changes are notable. QRS QTC QT are normal. Impression: Normal sinus rhythm normal EKG Discharge Plan Discharge Clinical Impression: Chest pain Patient Disposition: Home w/ Parent or Adult Condition: Stable Instructions: Chest Pain (DC), Chest Wall Pain (ED) Additional Instructions: Home rest we will try a Medrol Dosepak to see we can get this under control, all of your testing is negative, including your ultrasound which I did. I wonder if this is more chest wall pain, but I would like you to follow-up with primary care physician, and get an opinion within the next week, stress echo may or may not be needed. Return here if worsening signs and symptoms shortness of breath or other issue. Remember that the Medrol Dosepak can cause some issues with reflux, insomnia, polyphagia or mood changes. Activity Level: Light activity Discharge Diet: Regular Prescriptions: New methylprednisolone [Medrol (Low)] 4 mg tablets,dose pack See Rx Instructions .ROUTE .COMPLEX Qty: 21 0RF Rx Instructions: for 6 days No Action levothyroxine 112 mcg tablet 112 mcg PO DAILY tamsulosin [Flomax] 0.4 mg capsule 0.4 mg PO DAILY Qty: 14 0RF oxycodone-acetaminophen 5-325 mg tablet 1 tab PO Q4-6H PRN oxycodone 5 mg tablet 5 - 10 mg PO Q4H PRN (Reason: pain) Qty: 14 0RF Follow Up/Referrals: Florencia Ibrahim DO [Primary Care Provider, Family Practice] Stand Alone [facility]: [facility] Inst[facility] Procedures Ultrasound Cardiac exam #1: Anatomical areas examined: subxiphoid, parasternal long, parasternal short and apical 4 chamber Indications: chest pain Exam type: limited transthoracic echocardiogram Impression: negative exam and other (Views saved in PACS)
[2024-09-16 10:26] LABS: Chloride* 105 mmol/L (96-114); Potassium* 4.6 mmol/L (3.6-5.1); Sodium* 135 mmol/L (135-149)
[2024-09-16 10:28] LABS: Blood Urea Nitrogen* 18 mg/dL (5-24); Creatinine* 0.6 mg/dL (0.5-1.5); Estimated Glomerular Filt Rate 114 ml/min
[2024-09-16 10:29] LABS: Anion Gap 5 mEq/L (7-15); Calcium* 8.9 mg/dL (8.4-10.6); Carbon Dioxide* 25 mmol/L (20-32); Glucose* 98 mg/dL (60-115)
[2024-09-16 10:30] LABS: INR 0.99 (0.91-1.10); Partial Thromboplastin Time* 26 Seconds (23-33); Prothrombin Time 13.9 Seconds
[2024-09-16 10:40] LABS: D Dimer Quantitative* < 0.27 ug/ml (0.00-0.50); NT Pro B Type NatriureticPept* 291 pg/mL (See Note)
== END 2024-09-16 11:50 | disposition home or self-care (01) ==
PROVIDERS: Emergency Provider Family Medicine; PCP Family Medicine
DX: R07.9 Chest pain, unspecified (principal)
CPT/HCPCS: 36415; 71046; 80048; 83880; 84484; 85025; 85379; 85610; 85730; 86140; 93005; 93308; 94761; 99284; 99285; A9270